=== PATIENT | female | born 1935 | race Caucasian/White ===

== ENCOUNTER 2018-07-27 18:20 | Emergency (ER) | payer MEDICARE, OTHER ==
[~2018-07-27] VITALS: Ht 157.5 cm; Wt 72.7 kg
[2018-07-27 18:35] VITALS: BP 150/70; PULSE 74; TEMP 97.3
[2018-07-27] MEDS ORDERED: COREG 25MG25 MG/TAB PO (19:13)
[2018-07-27] MEDS ORDERED: KLOR-CON M2020 MEQ PO (19:14)
[2018-07-27] MEDS ORDERED: NORVASC 5MG5 MG/TAB PO (19:14)
[2018-07-27] MEDS ORDERED: COZAAR100 MG PO (19:15)
[2018-07-27] MEDS ORDERED: PRAVACHOL 20MG20 MG PO (19:16)
[2018-07-27] MEDS ORDERED: PLAVIX 75MG TAB75 MG PO (19:17)
[2018-07-27] MEDS ORDERED: NIACIN 64 MG-501 TA1 PO (19:18)
[2018-07-27] MEDS ORDERED: FISH OIL 500 M1 EAC1 PO (19:19)
[2018-07-27] MEDS ORDERED: CALTRATE 600 +1 TAB PO (19:19)
== END 2018-07-27 20:48 | disposition home or self-care (01) ==
LOC: COL.ER 18:20
DX: S30.0XXA Contusion of lower back and pelvis, initial encounter (principal); Z79.02 Long term (current) use of antithrombotics/antiplatelets; W19.XXXA Unspecified fall, initial encounter; Y92.009 Unspecified place in unspecified non-institutional (private) residence as the place of occurrence of the external cause
CPT/HCPCS: J1885